=== PATIENT | male | born 1970 | race African-American/Black ===

== ENCOUNTER 2017-04-26 20:44 | Inpatient (IN) | payer MEDICAID ==
[~2017-04-26] VITALS: Ht 195.6 cm; Wt 137.0 kg
--- NOTE | 2017-04-26 22:30 | NUR ---
pt [id number]. ambulated into ED with c/o HTN with some dizziness. pt denies hx of HTN. able to speak in clear and complete sentences and make needs known. pt denies MORA, chest pain, sob and visual changes/blurry vision. at bedside.
[2017-04-26 22:39] LABS: BASOPHILS # (AUTO) 0.1 K/uL (0.0-8.0); BASOPHILS % (AUTO) 1.2 % (0.0-2.0); EOSINOPHILS # (AUTO) 0.2 K/uL (0.0-0.7); EOSINOPHILS % (AUTO) 2.1 % (0.0-7.0); HEMATOCRIT 54.8 % (36.7-47.1); HEMOGLOBIN 18.4 g/dL (12.5-16.3); LYMPHOCYTES # (AUTO) 2.9 K/uL (20.0-40.0); LYMPHOCYTES % (AUTO) 33.6 % (20.5-51.5); MEAN CORPUSCULAR HEMOGLOBIN 25.2 uug (23.8-33.4); MEAN CORPUSCULAR HGB CONC 34 g/dL (32.5-36.3); MEAN CORPUSCULAR VOLUME 75.2 fL (73.0-96.2); MONOCYTES # (AUTO) 0.8 K/uL (2.0-10.0); MONOCYTES % (AUTO) 8.7 % (0.0-11.0); NEUTROPHILS # (AUTO) 4.8 K/uL (1.8-8.9); NEUTROPHILS % (AUTO) 54.4 % (38.5-71.5); PLATELET COUNT (AUTO) 222 K/uL (152-348); WHITE BLOOD COUNT (AUTO) 8.8 K/uL (3.6-10.2)
[2017-04-26 22:41] LABS: RED BLOOD CELL COUNT(AUTO) 7.29 MIL/uL (4.06-5.63)
[2017-04-26 22:50] LABS: CREATININE 1.4 mg/dL (0.6-1.3); POTASSIUM 3.3 mmol/L (3.5-5.1)
[2017-04-26 23:01] LABS: BILIRUBIN,DIRECT 0.1 mg/dL (0.0-0.2); BILIRUBIN,TOTAL 0.3 mg/dL (0.2-1.0); TOTAL PROTEIN, SERUM 7.2 g/dL (6.4-8.2)
[2017-04-27] MEDS ORDERED: AMLODIPINE 5 MG TABLET PO ONE
[2017-04-27 00:17] LABS: LYMPHOCYTES % (MANUAL) 33 % (20-40); MONOCYTES % (MANUAL) 8 % (2-10); NEUTROPHILS % (MANUAL) 59 % (42-75)
[2017-04-27] MEDS ORDERED: AMLODIPINE 5 MG TABLET ONE (00:21)
--- NOTE | 2017-04-27 00:30 | NUR ---
pt with continuing high blood pressure readings. denies MORA, chest pain, blurred vision/visual changes. ER MD made aware, awaiting orders
[2017-04-27] MEDS ORDERED: LABETALOL HCL 100 MG/20 ML VIAL IV ONE (01:00)
--- NOTE | 2017-04-27 01:00 | NUR ---
pt refusing saline lock and medication administration at this time. wishes to discuss recommended tx with . ER MD made aware
[2017-04-27] MEDS ORDERED: LABETALOL HCL 100 MG/20 ML VIAL ONE (01:37)
--- NOTE | 2017-04-27 01:40 | NUR ---
pt agreed with tx recommended by ER . orders completed.
[2017-04-27] MEDS ORDERED: hydrALAZINE HCL 20 MG/1 ML VIAL IV ONE ×2 (02:30→02:45)
[2017-04-27] MEDS ORDERED: hydrALAZINE HCL 20 MG/1 ML VIAL ONE (02:39)
[2017-04-27] MEDS ORDERED: IV NS 1000 ML 1,000 ML IV PRN (03:40)
--- NOTE | 2017-04-27 03:40 | NUR ---
Patient is resting comfortably in bed with eyes closed. will continue to monitor
[2017-04-27] MEDS ORDERED: HYDROCODONE/APAP 5-325MG TABLET PO PRN (03:45)
[2017-04-27] MEDS ORDERED: hydrALAZINE HCL 20 MG/1 ML VIAL IV PRN (03:45)
[2017-04-27] MEDS ORDERED: Z GUARD REMEDY PASTE 57 GM TUBE TOP PRN (03:45)
[2017-04-27] MEDS ORDERED: ACETAMINOPHEN 325 MG TABLET PO PRN (03:45)
[2017-04-27] MEDS ORDERED: ONDANSETRON 4 MG/2 ML VIAL IV PRN (03:45)
[2017-04-27] MEDS ORDERED: MAGNESIUM HYDROXIDE 30 ML LIQUID UDC PO PRN (03:45)
--- NOTE | 2017-04-27 04:37 | NUR ---
report given to inpt nurse Candi STEPHENS
--- NOTE | 2017-04-27 05:00 | NUR ---
RECEIVED PT FROM ER BY A WHEELCHAIR. PT DX: ACCELERATED HTN. ADMITTED TO TELE. PT IV INTACT AND PATENT. PT AWAKE, ALERT, ORIENTED X4.NO SIGNS OF DISTRESS NOTED. NO PAIN. BELONGING LIST DONE. ADMISSION PROCESS AND CARE PLAN INITIATED. NEW ADMISSION.SAFETY AND COMFORT PROVIDED. CALL LIGHT WITHIN REACH .WILL CONTINUE TO MONITOR.
--- NOTE | 2017-04-27 07:30 | NUR ---
Patient is resting comfortably in bed with eyes closed.no c/o pain noted /v/s are stable, call light with in reach .will continue to monitor
[2017-04-27] MEDS ORDERED: AMLODIPINE 5 MG TABLET PO SCH (09:00)
[2017-04-27] MEDS ORDERED: POTASSIUM CHLORIDE 20 MEQ TAB.PRT.SR PO ONE (10:30)
[2017-04-27] MEDS ORDERED: IV 1/2NS 1000 ML 1,000 ML IV PRN (10:30)
--- NOTE | 2017-04-27 10:54 | NUR ---
D/C TELE PER MD ORDERS,
[2017-04-27 12:01] VITALS: BP 164/110
[2017-04-27] MEDS ORDERED: LOSARTAN POTASSIUM 50 MG TABLET PO SCH (12:30)
[2017-04-27 15:48] VITALS: BP 160/66
--- NOTE | 2017-04-27 17:39 | NUR ---
d/c orders received noted and carried out,d/c heplock per md orders.d/c instructions given to the pt.pt will follow up with his dr.pt left the facility via private car in stable condition.
== END 2017-04-27 17:45 | disposition home or self-care (01) | DRG 305 ==
LOC: ER 20:48 → TELE 04-27 04:54 → MED 04-27 10:36
PROVIDERS: ADMIT Nurse Practitioner Acute Care; ATTEND Internal Medicine
DX: I16.0 Hypertensive urgency (principal); I77.819 Aortic ectasia, unspecified site; Z82.3 Family history of stroke; Z83.3 Family history of diabetes mellitus; Z82.49 Family history of ischemic heart disease and other diseases of the circulatory system
CPT/HCPCS: 36415; 70030-TC; 71045; 85025; 85730; 93005; 93307; A4663; J0360; J3490; J7030